=== PATIENT | female | born 1995 | race American Indian/Alaskan Native ===

== ENCOUNTER 2017-09-09 08:54 | Emergency (ER) | payer OTHER ==
[2017-09-09 11:02] VITALS: BP 123/81
[2017-09-09 11:54] LABS: Basophils # (Auto) 0.1 K/mm3 (0.0-0.1); Basophils % (Auto) 0.7 % (0.0-1.8); Eosinophils # (Auto) 0.2 K/mm3 (0.0-0.4); Eosinophils % (Auto) 2.3 % (0.0-4.3); Hematocrit 39.4 % (30.3-42.9); Hemoglobin 13.2 gm/dl (10.1-14.3); Lymphocytes # (Auto) 1.7 K/mm3 (1.2-5.4); Mean Corpuscular HGB Conc 33 % (30-34); Mean Corpuscular Hemoglobin 30 pg (28-32); Mean Corpuscular Volume 90 fl (79-97); Monocytes # (Auto) 0.6 K/mm3 (0.0-0.8); Monocytes % (Auto) 8.4 % (0.0-7.3); Platelet Count 215 K/mm3 (140-440); Red Cell Distribution Width 13.6 % (13.2-15.2)
[2017-09-09 12:05] LABS: Bacteria,Urine 2+ /HPF (Negative); Bilirubin,Urine NEG (Negative); Blood,Urine LG (Negative); Color,Urine Amber (Yellow); Mucus,Urine 3+ /HPF; Nitrite,Urine NEG (Negative)
[2017-09-09 12:06] LABS: RBC,Urine > 182.0 /HPF (0.0-6.0)
== END 2017-09-09 18:28 | disposition left against medical advice (07) ==
LOC: ED 08:54
DX: Z53.21 Procedure and treatment not carried out due to patient leaving prior to being seen by health care provider (principal)
CPT/HCPCS: 36415; 81001; 84702; 85025; 86850; 86900; 86901

== ENCOUNTER 2020-04-15 22:50 | Emergency (ER) | payer MEDICAID ==
[2020-04-15] MEDS ORDERED: IPRATROPIUM 0.02% NEBU 2.5 ML IH ONE ×2 (23:31→23:33)
[2020-04-15] MEDS ORDERED: ALBUTEROL 2.5 MG/3 ML NEBU IH ONE ×2 (23:31→23:33)
[2020-04-15] MEDS ORDERED: methylPREDNISolone Sod Succinate 125 MG/2 ML INJ IV ONE (23:45)
--- NOTE | 2020-04-15 23:45 | Emergency Department Report ---
ED Shortness of Breath HPI - General Chief Complaint: Dyspnea/Respdistress Stated Complaint: DIFFICULTY IN BREATHING Time Seen by Provider: 04/15/20 23:29 Source: patient Mode of arrival: Ambulatory Limitations: No Limitations - History of Present Illness Initial Comments: Patient is a 25-year-old female that presents emergency room with complaints of shortness of breath and difficulty breathing and asthmatic breathing x1 day. Patient states states his been using albuterol today and has not responded. Patient denies fever. Patient denies chest pain. Patient states her shortness of breath and difficulty breathing are worse with exertion. Patient states her symptoms are better with rest. Patient states that she has used her albuterol inhaler multiple times a day. MD Complaint: shortness of breath, "asthma attack" -: Sudden Improves With: rest Worsens With: exertion Known History Of: asthma Associated Symptoms: cough Treatments Prior to Arrival: bronchodilator - Related Data Previous Rx's Medication Instructions Recorded Last Taken Type ALBUTEROL NEB's [Proventil 0.083% 2.5 mg IH TID PRN #1 box 04/16/20 Unknown Rx NEBS] Albuterol Mdi (or & Nicu Only) 1 puff IH Q4HR PRN 2 Days #8.5 gram 04/16/20 Unknown Rx [ProAir HFA Inhaler] Fluticasone/Salmeterol [Advair 1 each IH BID 1 Days #1 blst.w.dev 04/16/20 Unknown Rx 100-50 Diskus] dexAMETHasone [Taperdex] 1.5 mg PO DAILY 7 Days #1 tab.ds.pk 04/16/20 Unknown Rx Allergies Allergy/AdvReac Type Severity Reaction Status Date / Time No Known Allergies Allergy Verified 04/15/20 23:34 ED Review of Systems ROS: Stated complaint: DIFFICULTY IN BREATHING Other details as noted in HPI Constitutional: denies: chills, fever Eyes: denies: eye pain, eye discharge, vision change ENT: denies: ear pain, throat pain Respiratory: cough, shortness of breath, SOB with exertion, SOB at rest, wheezing Cardiovascular: denies: chest pain, palpitations Endocrine: no symptoms reported Gastrointestinal: denies: abdominal pain, nausea, diarrhea Genitourinary: denies: urgency, dysuria, discharge Musculoskeletal: denies: back pain, joint swelling, arthralgia Skin: denies: rash, lesions Neurological: denies: headache, weakness, paresthesias Psychiatric: denies: anxiety, depression Hematological/Lymphatic: denies: easy bleeding, easy bruising ED Past Medical Hx - Past Medical History Previous Medical History?: Yes Hx Asthma: Yes - Surgical History Past Surgical History?: Yes Additional Surgical History: R femur x 2 L ankle x 1 - Family History Family history: no significant - Social History Smoking Status: Never Smoker Substance Use Type: None - Medications Home Medications: Home Medications Medication Instructions Recorded Confirmed Last Taken Type ALBUTEROL NEB's [Proventil 0.083% 2.5 mg IH TID PRN #1 box 04/16/20 Unknown Rx NEBS] Albuterol Mdi (or & Nicu Only) 1 puff IH Q4HR PRN 2 Days #8.5 gram 04/16/20 Unknown Rx [ProAir HFA Inhaler] Fluticasone/Salmeterol [Advair 1 each IH BID 1 Days #1 blst.w.dev 04/16/20 Unknown Rx 100-50 Diskus] dexAMETHasone [Taperdex] 1.5 mg PO DAILY 7 Days #1 tab.ds.pk 04/16/20 Unknown Rx ED Physical Exam - General Limitations: No Limitations General appearance: alert, in distress - Head Head exam: Present: atraumatic, normocephalic - Eye Eye exam: Present: normal appearance - ENT ENT exam: Present: mucous membranes moist - Neck Neck exam: Present: normal inspection - Respiratory Respiratory exam: Present: respiratory distress, wheezes, decreased breath sounds - Cardiovascular Cardiovascular Exam: Present: regular rate, normal rhythm. Absent: systolic murmur, diastolic murmur, rubs, gallop - GI/Abdominal GI/Abdominal exam: Present: soft, normal bowel sounds - Extremities Exam Extremities exam: Present: normal inspection - Back Exam Back exam: Present: normal inspection - Neurological Exam Neurological exam: Present: alert, oriented X3 - Psychiatric Psychiatric exam: Present: normal affect, normal mood - Skin Skin exam: Present: warm, dry, intact, normal color. Absent: rash ED Course Vital Signs 04/15/20 04/15/20 04/16/20 23:24 23:35 00:15 Temperature 100.3 F H Pulse Rate 88 Pulse Rate [ 102 H Bilateral Throughout] Respiratory 20 18 Rate Respiratory 20 Rate [Bilateral Throughout] Blood Pressure 130/71 O2 Sat by Pulse 99 Oximetry - Reevaluation(s) Reevaluation #1: Patient states she is feeling a little bit better. Patient still receiving neb treatments. 04/16/20 00:01 Reevaluation #2: Patient never became hypoxic. Patient states he is feeling much better after medications. Patient states she is ready to go home. Patient asked for refill of albuterol. Patient's lung sounds are clear. Patient work to breathe has decreased. Patient has no signs of distress. Patient states she ran out of her Advair 2 years ago. Patient states her asthma has not been an issue for many years. Patient states she needs a refill of albuterol and Advair. I discussed all results and clinical findings with patient. I discussed plan of care with patient. Patient agrees with plan of care. Patient is stable for discharge. Patient will be discharged home. Patient given discharge instructions. Patient voiced understanding of discharge instructions. 04/16/20 02:01 ED Medical Decision Making - Lab Data Result diagrams: 04/15/20 23:54 04/16/20 Unknown - Radiology Data Radiology results: report reviewed, image reviewed interpreted by me: No acute findings on chest x-ray, no cardiomegaly, no osseous findings. CHEST 1 VIEW INDICATION / CLINICAL INFORMATION: Dyspnea. History of asthma COMPARISON: None available. FINDINGS: SUPPORT DEVICES: None. HEART / MEDIASTINUM: No significant abnormality. LUNGS / PLEURA: No significant pulmonary or pleural abnormality. No pneumothorax. ADDITIONAL FINDINGS: No significant additional findings. IMPRESSION: 1. No acute findings. No evidence of pneumonia. - Medical Decision Making Patient is a 25-year-old female that presents emergency room with asthmatic breathing, wheezing and shortness of breath. Patient given nebulizer treatment and Solu-Medrol and patient symptoms improved. Patient's lungs were clear upon discharge. Patient will be given a steroid taper pack and albuterol. Patient's labs are unremarkable. Patient's chest x-ray negative for acute findings. Patient stable for discharge. Patient discharged home. - Differential Diagnosis , asthma exacerbation, SOB, wheezing, cough Critical care attestation.: If time is entered above; I have spent that time in minutes in the direct care of this critically ill patient, excluding procedure time. ED Disposition Clinical Impression: SOB (shortness of breath) Asthma exacerbation Qualifiers: Asthma severity: unspecified severity Asthma persistence: unspecified Qualified Code(s): J45.901 - Unspecified asthma with (acute) exacerbation Disposition: DC- TO HOME OR SELFCARE Is pt being admited?: No Does the pt Need Aspirin: No Condition: Stable Instructions: Asthma (ED) Additional Instructions: Patient to follow-up with primary care in 2 to 3 days. Patient to follow-up with silk screen printer machine in 2 to 3 days. Patient to rest. Patient to increase water. Patient to avoid strenuous exercise or heavy lifting until cleared by silk screen printer machine. Patient to take Tylenol or ibuprofen as needed for pain. Patient to take meds as directed. Patient to return to the ER if condition worsens, changes or new symptoms arise. Prescriptions: Fluticasone/Salmeterol [Advair 100-50 Diskus] 1 each IH BID 1 Days #1 blst.w.dev Albuterol Mdi (or & Nicu Only) [ProAir HFA Inhaler] 1 puff IH Q4HR PRN 2 Days #8.5 gram PRN Reason: Wheezing ALBUTEROL NEB's [Proventil 0.083% NEBS] 2.5 mg IH TID PRN #1 box PRN Reason: Wheezing dexAMETHasone [Taperdex] 1.5 mg PO DAILY 7 Days #1 tab.ds.pk Referrals: FLORIDALMA KOO MD [Staff Physician] - 2-3 Days MICHELL SIDHU MD [Staff Physician] - 2-3 Days Time of Disposition: 02:08
[2020-04-16 00:18] LABS: Basophils # (Auto) 0.1 K/mm3 (0.0-0.1); Basophils % (Auto) 0.7 % (0.0-1.8); Eosinophils # (Auto) 0.5 K/mm3 (0.0-0.4); Eosinophils % (Auto) 6.3 % (0.0-4.3); Hematocrit 40.3 % (30.3-42.9); Hemoglobin 13.3 gm/dl (10.1-14.3); Lymphocytes # (Auto) 2.2 K/mm3 (1.2-5.4); Lymphocytes % (Auto) 27.6 % (13.4-35.0); Mean Corpuscular HGB Conc 33 % (30-34); Mean Corpuscular Volume 89 fl (79-97); Monocytes # (Auto) 0.7 K/mm3 (0.0-0.8); Monocytes % (Auto) 8.6 % (0.0-7.3); Platelet Count 244 K/mm3 (140-440); Red Blood Count 4.52 M/mm3 (3.65-5.03); Red Cell Distribution Width 12.8 % (13.2-15.2)
--- NOTE | 2020-04-16 00:18 | XRay Report ---
CHEST 1 VIEW INDICATION / CLINICAL INFORMATION: Dyspnea. History of asthma COMPARISON: None available. FINDINGS: SUPPORT DEVICES: None. HEART / MEDIASTINUM: No significant abnormality. LUNGS / PLEURA: No significant pulmonary or pleural abnormality. No pneumothorax. ADDITIONAL FINDINGS: No significant additional findings. IMPRESSION: 1. No acute findings. No evidence of pneumonia. Signer Name: Kasandra Reveles MD Signed: 04/16/2020 12:14 AM Workstation Name: [id number]
[2020-04-16 00:34] LABS: Alanine Aminotransferase 25 units/L (7-56); Albumin 4.1 g/dL (3.9-5); BUN/Creatinine Ratio 8; Blood Urea Nitrogen 6 mg/dL (7-17); Calcium 9.4 mg/dL (8.4-10.2); Hemolysis Index 11
[2020-04-16 02:10] VITALS: BP 129/68
== END 2020-04-16 02:46 | disposition home or self-care (01) ==
LOC: ED 22:50
DX: J45.901 Unspecified asthma with (acute) exacerbation (principal); Z79.899 Other long term (current) drug therapy
CPT/HCPCS: 36415; 71045; 80053; 84703; 85025; 94644; 96374; 99284; J2930

== ENCOUNTER 2021-08-22 10:44 | Emergency (ER) | payer SELFPAY ==
[2021-08-22] MEDS ORDERED: dexAMETHasone 20 MG/5 ML VIAL IM ONE (11:37)
[2021-08-22] MEDS ORDERED: IPRATROPIUM/ALBUTEROL SULFATE 3 ML AMPUL.NEB IH ONE (11:37)
--- NOTE | 2021-08-22 12:30 | XRay Report ---
CHEST 2 VIEWS INDICATION / CLINICAL INFORMATION: cough,wheezing, sob X1 DAY. COMPARISON: 04/15/2020 FINDINGS: SUPPORT DEVICES: None. HEART / MEDIASTINUM: No significant abnormality. LUNGS / PLEURA: No significant pulmonary or pleural abnormality. No pneumothorax. ADDITIONAL FINDINGS: No significant additional findings. IMPRESSION: 1. No acute findings. Signer Name: Julius Villa MD Signed: 08/22/2021 12:25 PM Workstation Name: [id number]
--- NOTE | 2021-08-22 12:35 | Emergency Department Report ---
- General Chief Complaint: Adult Asthma Stated Complaint: asthma Time Seen by Provider: 08/22/21 11:37 Source: patient Mode of arrival: Ambulatory Limitations: No Limitations - History of Present Illness Initial Comments: Patient is a 26-year-old female presents emergency with complaints of an asthma exacerbation that began two days ago. She has associated cough, shortness of br eath, wheezing, chest tightness, chills, body aches. She denies any fever, vomiting, diarrhea. She denies any known sick contacts or recent travel. She has a history of asthma and reports that she is out of her albuterol inhaler and her nebulizer solution. No allergies to medications. - Related Data Previous Rx's Medication Instructions Recorded Last Taken Type ALBUTEROL NEB's [Proventil 0.083% 2.5 mg IH TID PRN #1 box 04/16/20 Unknown Rx NEBS] Albuterol Mdi (or & Nicu Only) 1 puff IH Q4HR PRN 2 Days #8.5 gram 04/16/20 Unknown Rx [ProAir HFA Inhaler] Fluticasone/Salmeterol [Advair 1 each IH BID 1 Days #1 blst.w.dev 04/16/20 Unknown Rx 100-50 Diskus] dexAMETHasone [Taperdex] 1.5 mg PO DAILY 7 Days #1 tab.ds.pk 04/16/20 Unknown Rx predniSONE [Deltasone] 40 mg PO QDAY #15 tab 04/17/20 Unknown Rx ALBUTEROL NEB's [Proventil 0.083% 2.5 mg IH TID PRN #1 box 08/22/21 Unknown Rx NEBS] Albuterol Sulfate [Proventil Hfa] 1 puff IH TID PRN #1 hfa.aer.ad 08/22/21 Unknown Rx Benzonatate [Tessalon Perles] 100 mg PO Q8HR PRN #12 capsule 08/22/21 Unknown Rx Ondansetron [Zofran Odt] 4 mg PO Q8HR PRN #10 tab.rapdis 08/22/21 Unknown Rx Prednisone [predniSONE 10 mg 10 mg PO .TAPER #1 tab.ds.pk 08/22/21 Unknown Rx (6-Day Pack, 21 Tabs)] guaiFENesin ER [Mucinex ER] 600 mg PO Q12H #14 tablet.er 08/22/21 Unknown Rx Allergies Allergy/AdvReac Type Severity Reaction Status Date / Time No Known Allergies Allergy Verified 04/15/20 23:34 ED Review of Systems ROS: Stated complaint: asthma Other details as noted in HPI Comment: All other systems reviewed and negative ED Past Medical Hx - Past Medical History Hx Asthma: Yes - Surgical History Additional Surgical History: R femur x 2 L ankle x 1 - Social History Smoking Status: Never Smoker Substance Use Type: None - Medications Home Medications: Home Medications Medication Instructions Recorded Confirmed Last Taken Type ALBUTEROL NEB's [Proventil 0.083% 2.5 mg IH TID PRN #1 box 04/16/20 Unknown Rx NEBS] Albuterol Mdi (or & Nicu Only) 1 puff IH Q4HR PRN 2 Days #8.5 gram 04/16/20 Unknown Rx [ProAir HFA Inhaler] Fluticasone/Salmeterol [Advair 1 each IH BID 1 Days #1 blst.w.dev 04/16/20 Unknown Rx 100-50 Diskus] dexAMETHasone [Taperdex] 1.5 mg PO DAILY 7 Days #1 tab.ds.pk 04/16/20 Unknown Rx predniSONE [Deltasone] 40 mg PO QDAY #15 tab 04/17/20 Unknown Rx ALBUTEROL NEB's [Proventil 0.083% 2.5 mg IH TID PRN #1 box 08/22/21 Unknown Rx NEBS] Albuterol Sulfate [Proventil Hfa] 1 puff IH TID PRN #1 hfa.aer.ad 08/22/21 Unknown Rx Benzonatate [Tessalon Perles] 100 mg PO Q8HR PRN #12 capsule 08/22/21 Unknown Rx Ondansetron [Zofran Odt] 4 mg PO Q8HR PRN #10 tab.rapdis 08/22/21 Unknown Rx Prednisone [predniSONE 10 mg 10 mg PO .TAPER #1 tab.ds.pk 08/22/21 Unknown Rx (6-Day Pack, 21 Tabs)] guaiFENesin ER [Mucinex ER] 600 mg PO Q12H #14 tablet.er 08/22/21 Unknown Rx ED Physical Exam - General Limitations: No Limitations General appearance: alert, in no apparent distress - Head Head exam: Present: atraumatic, normocephalic - Eye Eye exam: Present: normal appearance - ENT ENT exam: Present: normal orophraynx, mucous membranes moist, TM's normal bilaterally, normal external ear exam - Respiratory Respiratory exam: Present: wheezes, prolonged expiratory. Absent: respiratory distress, rales, rhonchi, stridor, chest wall tenderness, accessory muscle use, decreased breath sounds - Cardiovascular Cardiovascular Exam: Present: regular rate, normal rhythm, normal heart sounds. Absent: systolic murmur, diastolic murmur, rubs, gallop - Neurological Exam Neurological exam: Present: alert, oriented X3 - Psychiatric Psychiatric exam: Present: normal affect, normal mood - Skin Skin exam: Present: warm, dry, intact ED Course Vital Signs 08/22/21 08/22/21 08/22/21 10:51 12:51 12:56 Temperature 97.1 F L Pulse Rate 89 64 64 Respiratory 16 15 15 Rate Blood Pressure 117/72 108/70 130/78 [Right] O2 Sat by Pulse 98 100 100 Oximetry ED Medical Decision Making - Lab Data Vital Signs 08/22/21 08/22/21 08/22/21 10:51 12:51 12:56 Temperature 97.1 F L Pulse Rate 89 64 64 Respiratory 16 15 15 Rate Blood Pressure 117/72 108/70 130/78 [Right] O2 Sat by Pulse 98 100 100 Oximetry - Radiology Data Radiology results: report reviewed Ordering Physician: CLEVE AMBRIZ Date of Service: 08/22/21 Procedure(s): XR chest routine 2V Accession Number(s): [id number] cc: CLEVE AMBRIZ Fluoro Time In Minutes: CHEST 2 VIEWS INDICATION / CLINICAL INFORMATION: cough,wheezing, sob X1 DAY. COMPARISON: 04/15/2020 FINDINGS: SUPPORT DEVICES: None. HEART / MEDIASTINUM: No significant abnormality. LUNGS / PLEURA: No significant pulmonary or pleural abnormality. No pneumothorax. ADDITIONAL FINDINGS: No significant additional findings. IMPRESSION: 1. No acute findings. Signer Name: Julius Villa MD Signed: 08/22/2021 12:25 PM Workstation Name: [id number] Transcribed By: ALDA Dictated By: Julius Villa MD Electronically Authenticated By: Julius Villa MD Signed Date/Time: 08/22/21 122 DD/ 1225 TD/TT: - Medical Decision Making Patient is a 26-year-old female presents emergency with complaints of an asthma exacerbation that began two days ago. She has associated cough, shortness of breath, wheezing, chest tightness, chills, body aches. She denies any fever, vomiting, diarrhea. She denies any known sick contacts or recent travel. She has a history of asthma and reports that she is out of her albuterol inhaler and her nebulizer solution. No allergies to medications. Vitals are stable. On exam she has wheezing bilaterally. Patient given DuoNeb and dexamethasone IM. On reexamination wheezing has completely resolved. Chest x-ray 1. No acute findings. Patient given refill of her medications and placed on steroids. Advised patient Please take medication as prescribed. Increase your fluid intake. Follow-up with primary care doctor. Return to emergency room for any new or worsening symptoms. Recommend outpatient COVID-19 testing and if positive will need to self quarantine for 10 days or onset of symptoms. Critical care attestation.: If time is entered above; I have spent that time in minutes in the direct care of this critically ill patient, excluding procedure time. ED Disposition Clinical Impression: Asthma exacerbation Qualifiers: Asthma severity: unspecified severity Asthma persistence: unspecified Qualified Code(s): J45.901 - Unspecified asthma with (acute) exacerbation URI (upper respiratory infection) Qualifiers: URI type: unspecified URI Qualified Code(s): J06.9 - Acute upper respiratory infection, unspecified Disposition: 01 HOME / SELF CARE / HOMELESS Is pt being admited?: No Does the pt Need Aspirin: No Condition: Stable Instructions: Asthma Attack, Viral Respiratory Infection Additional Instructions: Please take medication as prescribed. Increase your fluid intake. Follow-up with primary care doctor. Return to emergency room for any new or worsening symptoms. Recommend outpatient COVID-19 testing and if positive will need to self quarantine for 10 days or onset of symptoms. Prescriptions: guaiFENesin ER [Mucinex ER] 600 mg PO Q12H #14 tablet.er Prednisone [predniSONE 10 mg (6-Day Pack, 21 Tabs)] 10 mg PO .TAPER #1 tab.ds.pk ALBUTEROL NEB's [Proventil 0.083% NEBS] 2.5 mg IH TID PRN #1 box PRN Reason: Wheezing Albuterol Sulfate [Proventil Hfa] 1 puff IH TID PRN #1 hfa.aer.ad PRN Reason: shortness of breath/wheezing Benzonatate [Tessalon Perles] 100 mg PO Q8HR PRN #12 capsule PRN Reason: cough Ondansetron [Zofran Odt] 4 mg PO Q8HR PRN #10 tab.rapdis PRN Reason: nausea/vomiting Referrals: PRIMARY CARE,MD [Primary Care Provider] - 3-5 Days Forms: Work/School Release Form(ED) Time of Disposition: 12:33 Print Language: BRAZILIAN
[2021-08-22 12:57] VITALS: BP 130/78
== END 2021-08-22 12:56 | disposition home or self-care (01) ==
LOC: ED 10:44
DX: J45.901 Unspecified asthma with (acute) exacerbation (principal); J06.9 Acute upper respiratory infection, unspecified; R07.89 Other chest pain; R68.83 Chills (without fever); R52 Pain, unspecified
CPT/HCPCS: 71046; 96372; 99283; J1100